=== PATIENT | female | born 1995 | race American Indian/Alaskan Native ===

== ENCOUNTER 2018-08-13 11:39 | Emergency (ER) | payer SELFPAY ==
[2018-08-13 11:59] VITALS: BP 116/68
--- NOTE | 2018-08-13 14:37 | Emergency Department Report ---
Chief Complaint: Skin Rash Stated Complaint: UNDER ARM RASH/VAGINAL ITCHING Time Seen by Provider: 08/13/18 14:16 - HPI History of Present Illness: 22-year-old female presents to the emergency department with 2 complaints. First, the patient has been dealing with a rash under her armpits that is much worse to the left axilla than the right. She was seen for this at a different emergency department and placed on nystatin cream. She's been using it compliantly without any relief. It is itchy and has caused some skin color change. Second complaint is vaginal itching and burning. She had some recent white discharge but that has improved. She denies any abdominal or pelvic pains. - ROS Review of Systems: Positive for rash, vaginal itching and irritation Negative for vaginal bleeding, dysuria, fever - Exam Vital Signs: Vital Signs 08/13/18 11:56 Temperature 98.5 F Pulse Rate 69 Respiratory 16 Rate Blood Pressure 116/68 O2 Sat by Pulse 99 Oximetry Physical Exam: Patient has some darkening of the skin to the bilateral axilla, much worse on the left. There are some excoriations. No bleeding, weeping or drainage. MSE screening note: Focused history and physical exam performed. Due to findings the following was ordered: Patient may need pelvic examination. ED Disposition for MSE Condition: Stable Referrals: PRIMARY CARE, [Primary Care Provider] - 3-5 Days
--- NOTE | 2018-08-13 15:38 | Event Note ---
Date: 08/13/18 (NOT IN ROOM WHEN WENT TO EXAMINE PT. SHE NEVER LEFT A SPECIMENT. ) RN SAW HER LEAVE AND SHE STATED SHE WAS HUNGRY AND HAD TO LEAVE.
== END 2018-08-13 15:30 | disposition left against medical advice (07) ==
LOC: ED 11:39
DX: R21 Rash and other nonspecific skin eruption (principal)
CPT/HCPCS: 99281

== ENCOUNTER 2018-08-18 16:51 | Emergency (ER) | payer SELFPAY ==
[2018-08-18 17:22] VITALS: BP 115/57
--- NOTE | 2018-08-18 18:13 | Emergency Department Report ---
Chief Complaint: Urogenital-Female Stated Complaint: STD CHECK/VAGINAL ITCHING - HPI History of Present Illness: Ms. Azar comes to ER for STD screening, she has mild vaginal itching and irritation - Exam Vital Signs: Vital Signs 08/18/18 17:19 Temperature 98.2 F Pulse Rate 75 Respiratory 16 Rate Blood Pressure 115/57 O2 Sat by Pulse 99 Oximetry MSE screening note: Focused history and physical exam performed. Due to findings the following was ordered: ED Medical Decision Making - Medical Decision Making Referred to Health Department for STD evaluation and treatment ED Disposition for MSE Clinical Impression: Vaginitis Disposition: DC- TO HOME OR SELFCARE Is pt being admited?: No Does the pt Need Aspirin: No Condition: Stable Instructions: Vaginitis (ED) Referrals: [facility] Depart [Outside] - 3-5 Days
== END 2018-08-18 18:04 | disposition home or self-care (01) ==
LOC: ED 16:51
DX: N76.0 Acute vaginitis (principal)
CPT/HCPCS: 99282

== ENCOUNTER 2019-06-13 18:58 | Emergency (ER) | payer SELFPAY ==
[2019-06-13 20:58] LABS: Basophils # (Auto) 0.1 K/mm3 (0.0-0.1); Basophils % (Auto) 0.7 % (0.0-1.8); Eosinophils # (Auto) 0.1 K/mm3 (0.0-0.4); Eosinophils % (Auto) 1.4 % (0.0-4.3); Hematocrit 36.1 % (30.3-42.9); Hemoglobin 12.1 gm/dl (10.1-14.3); Lymphocytes # (Auto) 2.6 K/mm3 (1.2-5.4); Lymphocytes % (Auto) 26.5 % (13.4-35.0); Mean Corpuscular HGB Conc 34 % (30-34); Mean Corpuscular Volume 90 fl (79-97); Monocytes # (Auto) 0.8 K/mm3 (0.0-0.8); Monocytes % (Auto) 7.9 % (0.0-7.3); Platelet Count 339 K/mm3 (140-440); Red Cell Distribution Width 13.7 % (13.2-15.2)
[2019-06-13 21:30] LABS: HCG Qualitative,Urine Negative (Negative)
[2019-06-13 21:31] LABS: Bilirubin,Urine NEG (Negative); Blood,Urine NEG (Negative); Color,Urine Amber (Yellow); Mucus,Urine 3+ /HPF; Protein,Urine <15 mg/dL mg/dL (Negative)
--- NOTE | 2019-06-13 21:52 | Emergency Department Report ---
ED Female HPI - General Chief complaint: Urogenital-Female Stated complaint: VAGINAL DISCHARGE Time Seen by Provider: 06/13/19 20:38 Source: patient Mode of arrival: Ambulatory Limitations: No Limitations - History of Present Illness Initial comments: Patient is a 23-year-old -[place] female who presents for vaginal discharge 3 weeks discharge described as white yellow malodorous fishy is no fevers no chills no nausea vomiting no back pain or abdominal pain LMP 4 weeks ago Complaint: vaginal discharge Onset/Timin -: week(s) Radiation: non-radiating Severity: moderate Severity scale (0 -10): 4 Quality: other (itching ) Consistency: constant Improves with: none Worsens with: none Are you Now?: No Last Menstrual Period: 05/22/19 EDC: 02/26/20 Associated Symptoms: vaginal discharge. denies: vaginal bleeding, nausea/vomiting, fever/chills, dysuria - Related Data Sexually active: Yes : 2 Para: 2 A: 0 Previous Rx's Medication Instructions Recorded Last Taken Type Fluconazole [Diflucan TAB] 150 mg PO ONCE #1 tablet 06/13/19 Unknown Rx metroNIDAZOLE [Flagyl] 500 mg PO BID 10 Days #20 tab 06/13/19 Unknown Rx Allergies Allergy/AdvReac Type Severity Reaction Status Date / Time No Known Allergies Allergy Unverified 08/13/18 11:59 ED Review of Systems ROS: Stated complaint: VAGINAL DISCHARGE Other details as noted in HPI Constitutional: denies: chills, fever Eyes: denies: eye pain, eye discharge, vision change ENT: denies: ear pain, throat pain Respiratory: denies: cough, shortness of breath, wheezing Cardiovascular: denies: chest pain, palpitations Endocrine: no symptoms reported Gastrointestinal: denies: abdominal pain, nausea, vomiting, diarrhea Genitourinary: discharge. denies: urgency, dysuria, frequency, hematuria, dyspareunia Musculoskeletal: denies: back pain, joint swelling, arthralgia Skin: denies: rash, lesions Neurological: denies: headache, weakness, paresthesias Psychiatric: denies: anxiety, depression Hematological/Lymphatic: denies: easy bleeding, easy bruising ED Past Medical Hx - Past Medical History Previous Medical History?: No - Surgical History Past Surgical History?: No - Social History Smoking Status: Never Smoker Substance Use Type: Alcohol - Medications Home Medications: Home Medications Medication Instructions Recorded Confirmed Last Taken Type Fluconazole [Diflucan TAB] 150 mg PO ONCE #1 tablet 06/13/19 Unknown Rx metroNIDAZOLE [Flagyl] 500 mg PO BID 10 Days #20 tab 06/13/19 Unknown Rx ED Physical Exam - General Limitations: No Limitations General appearance: alert, in no apparent distress - Head Head exam: Present: atraumatic, normocephalic, normal inspection - Eye Eye exam: Present: normal appearance, PERRL, EOMI Pupils: Present: normal accommodation - ENT ENT exam: Present: mucous membranes moist - Neck Neck exam: Present: normal inspection, full ROM. Absent: lymphadenopathy - Respiratory Respiratory exam: Present: normal lung sounds bilaterally. Absent: respiratory distress, wheezes, stridor, chest wall tenderness - Cardiovascular Cardiovascular Exam: Present: regular rate, normal rhythm, normal heart sounds. Absent: systolic murmur, diastolic murmur, rubs, gallop - GI/Abdominal GI/Abdominal exam: Present: soft, normal bowel sounds. Absent: distended, tenderness, guarding, rebound, rigid, bruit, hernia - Rectal Rectal exam: Present: deferred - External exam: Present: normal external exam. Absent: erythema, swelling, lesions, lacerations, ecchymosis, bleeding Speculum exam: Present: erythema, vaginal discharge (white thick malodorous ). Absent: cervical discharge, vaginal bleeding, foreign body, tissue, laceration Bi-manual exam: Absent: cervical motion tendernes - Extremities Exam Extremities exam: Present: normal inspection, full ROM, normal capillary refill. Absent: tenderness, pedal edema, joint swelling, calf tenderness - Back Exam Back exam: Present: normal inspection, full ROM, tenderness. Absent: CVA tenderness (R), CVA tenderness (L), muscle spasm, paraspinal tenderness, verteb ral tenderness, rash noted - Neurological Exam Neurological exam: Present: alert, oriented X3, normal gait, reflexes normal. Absent: motor sensory deficit - Psychiatric Psychiatric exam: Present: normal affect, normal mood - Skin Skin exam: Present: warm, dry, intact, normal color. Absent: rash ED Course Vital Signs 06/13/19 19:49 Temperature 98.4 F Pulse Rate 70 Respiratory 18 Rate Blood Pressure 117/59 ED Medical Decision Making - Lab Data Result diagrams: 06/13/19 20:42 Lab Results 06/13/19 06/13/19 Range/Units 20:42 21:05 WBC 10.0 (4.5-11.0) K/mm3 RBC 4.00 (3.65-5.03) M/mm3 Hgb 12.1 (10.1-14.3) gm/dl Hct 36.1 (30.3-42.9) % MCV 90 (79-97) fl MCH 30 (28-32) pg MCHC 34 (30-34) % RDW 13.7 (13.2-15.2) % Plt Count 339 (140-440) K/mm3 Lymph % (Auto) 26.5 (13.4-35.0) % Jefferson % (Auto) 7.9 H (0.0-7.3) % Eos % (Auto) 1.4 (0.0-4.3) % Baso % (Auto) 0.7 (0.0-1.8) % Lymph # 2.6 (1.2-5.4) K/mm3 Jefferson # 0.8 (0.0-0.8) K/mm3 Eos # 0.1 (0.0-0.4) K/mm3 Baso # 0.1 (0.0-0.1) K/mm3 Seg Neutrophils % 63.5 (40.0-70.0) % Seg Neutrophils # 6.3 (1.8-7.7) K/mm3 Urine Color Deepa (Yellow) Urine Turbidity Clear (Clear) Urine pH 6.0 (5.0-7.0) Ur Specific Linn 1.028 (1.003-1.030) Urine Protein <15 mg/dl (Negative) mg/dL Urine Glucose (UA) Neg (Negative) mg/dL Urine Ketones Neg (Negative) mg/dL Urine Blood Neg (Negative) Urine Nitrite Neg (Negative) Ur Reducing Substances Not Reportable Urine Bilirubin Neg (Negative) Urine Ictotest Not Reportable Urine Urobilinogen 2.0 (<2.0) mg/dL Ur Leukocyte Esterase Tr (Negative) Urine WBC (Auto) 2.0 (0.0-6.0) /HPF Urine RBC (Auto) 3.0 (0.0-6.0) /HPF U Epithel Cells (Auto) 9.0 (0-13.0) /HPF Urine Mucus 3+ /HPF Urine HCG, Qual Negative (Negative) wet prep pos for clue cells - Medical Decision Making Wet prep pos for clues, plan flagyl, diflucan, follow up with pcp in 2-3 days return to ed if symptoms worsen. Critical care attestation.: If time is entered above; I have spent that time in minutes in the direct care of this critically ill patient, excluding procedure time. ED Disposition Clinical Impression: BV (bacterial vaginosis) Disposition: TO HOME OR SELFCARE Is pt being admited?: No Does the pt Need Aspirin: No Condition: Stable Instructions: Bacterial Vaginosis (ED) Prescriptions: Fluconazole [Diflucan TAB] 150 mg PO ONCE #1 tablet metroNIDAZOLE [Flagyl] 500 mg PO BID 10 Days #20 tab Referrals: RYAN CARTAGENA MD [Primary Care Provider] - 3-5 Days Forms: Work/School Release Form(ED) Time of Disposition: 22:20
[2019-06-13 22:39] VITALS: BP 97/60
== END 2019-06-13 22:39 | disposition home or self-care (01) ==
LOC: ED 18:58
DX: N76.0 Acute vaginitis (principal); B96.89 Other specified bacterial agents as the cause of diseases classified elsewhere
CPT/HCPCS: 36415; 81001; 81025; 85025; 87210; 87591

== ENCOUNTER 2019-09-30 12:03 | Emergency (ER) | payer SELFPAY ==
--- NOTE | 2019-09-30 12:25 | Emergency Department Report ---
ED General Adult HPI - General Chief complaint: Urogenital-Female Stated complaint: VAGINAL DISCHARGE/IRRITATION Time Seen by Provider: 09/30/19 12:19 Source: patient Mode of arrival: Ambulatory Limitations: No Limitations - History of Present Illness Initial comments: 23 yo F complains of vaginal discharge with a mild odor x 2 weeks. She states she has hx of recurrent BV and that this seems like her normal BV. She denies any unprotected sex or hx of STI. She also denies vaginal bleeding, dysuria, hematuria, dyspareunia, vaginal lesions, itching, abdominal pain, or fever -: week(s) Worsens with: none Associated Symptoms: denies other symptoms Treatments Prior to Arrival: none - Related Data Previous Rx's Medication Instructions Recorded Last Taken Type Fluconazole [Diflucan TAB] 150 mg PO ONCE #1 tablet 06/13/19 Unknown Rx metroNIDAZOLE [Flagyl] 500 mg PO BID 10 Days #20 tab 06/13/19 Unknown Rx Fluconazole [Diflucan TAB] 150 mg PO ONCE 1 Days #1 tablet 09/30/19 Unknown Rx metroNIDAZOLE [Flagyl] 500 mg PO Q12HR 7 Days #14 tab 09/30/19 Unknown Rx Allergies Allergy/AdvReac Type Severity Reaction Status Date / Time No Known Allergies Allergy Unverified 09/30/19 12:15 ED Review of Systems ROS: Stated complaint: VAGINAL DISCHARGE/IRRITATION Other details as noted in HPI Comment: All other systems reviewed and negative Gastrointestinal: as per HPI Genitourinary: as per HPI ED Past Medical Hx - Social History Smoking Status: Never Smoker Substance Use Type: Alcohol - Medications Home Medications: Home Medications Medication Instructions Recorded Confirmed Last Taken Type Fluconazole [Diflucan TAB] 150 mg PO ONCE #1 tablet 06/13/19 Unknown Rx metroNIDAZOLE [Flagyl] 500 mg PO BID 10 Days #20 tab 06/13/19 Unknown Rx Fluconazole [Diflucan TAB] 150 mg PO ONCE 1 Days #1 tablet 09/30/19 Unknown Rx metroNIDAZOLE [Flagyl] 500 mg PO Q12HR 7 Days #14 tab 09/30/19 Unknown Rx ED Physical Exam - General Limitations: No Limitations ED Course Vital Signs 09/30/19 12:15 Temperature 98.3 F Pulse Rate 82 Respiratory 18 Rate Blood Pressure 98/60 O2 Sat by Pulse 98 Oximetry ED Medical Decision Making - Medical Decision Making Pt here with complaints of vaginal discharge. States hx of recurrent BV. Pt states she is not concerned for STI. Will treat BV with flagyl. Discussed need for f/u with PCP or OBGYN. Discussed strict return precautions in detail with pt who states understanding Critical care attestation.: If time is entered above; I have spent that time in minutes in the direct care of this critically ill patient, excluding procedure time. ED Disposition Clinical Impression: Bacterial vaginosis Disposition: TO HOME OR SELFCARE Is pt being admited?: No Condition: Stable Instructions: Bacterial Vaginosis (ED) Prescriptions: Fluconazole [Diflucan TAB] 150 mg PO ONCE 1 Days #1 tablet metroNIDAZOLE [Flagyl] 500 mg PO Q12HR 7 Days #14 tab Referrals: PRIMARY CARE, [Primary Care Provider] - 3-5 Days Forms: STI Treatment and Prevention
[2019-09-30 12:26] VITALS: BP 98/60
[2019-09-30] MEDS ORDERED: LORazepam 2 MG/ML VIAL ONE (15:35)
== END 2019-09-30 12:45 | disposition home or self-care (01) ==
LOC: ED 12:03
DX: N76.0 Acute vaginitis (principal)
CPT/HCPCS: J2060

== ENCOUNTER 2019-12-28 11:01 | Emergency (ER) | payer BC ==
[2019-12-28 11:06] VITALS: BP 113/63
--- NOTE | 2019-12-28 11:10 | Emergency Department Report ---
ED Extremity Problem HPI - General Chief complaint: Extremity Injury, Lower Stated complaint: LEFT FOOT PAIN Time Seen by Provider: 12/28/19 11:07 Source: patient Mode of arrival: Ambulatory Limitations: No Limitations - History of Present Illness Initial comments: tonja's daughter fell on her while walking and she injried the L 5th digit Complaint: extremity pain (left 5th toe), extremity swelling -: hour(s) (2) Radiation: none Severity scale (0 -10): 7 Quality: aching Consistency: constant Improves with: nothing Worsens with: weight bearing, walking, palpation - Related Data Previous Rx's Medication Instructions Recorded Last Taken Type Fluconazole [Diflucan TAB] 150 mg PO ONCE #1 tablet 06/13/19 Unknown Rx metroNIDAZOLE [Flagyl] 500 mg PO BID 10 Days #20 tab 06/13/19 Unknown Rx Fluconazole [Diflucan TAB] 150 mg PO ONCE 1 Days #1 tablet 09/30/19 Unknown Rx metroNIDAZOLE [Flagyl] 500 mg PO Q12HR 7 Days #14 tab 09/30/19 Unknown Rx Ibuprofen [Motrin 800 MG tab] 800 mg PO Q8HR PRN #10 tablet 12/28/19 Unknown Rx Allergies Allergy/AdvReac Type Severity Reaction Status Date / Time No Known Allergies Allergy Unverified 09/30/19 12:15 ED Review of Systems ROS: Stated complaint: LEFT FOOT PAIN Other details as noted in HPI Comment: All other systems reviewed and negative ED Past Medical Hx - Past Medical History Previous Medical History?: No - Surgical History Past Surgical History?: No - Social History Smoking Status: Never Smoker Substance Use Type: None - Medications Home Medications: Home Medications Medication Instructions Recorded Confirmed Last Taken Type Fluconazole [Diflucan TAB] 150 mg PO ONCE #1 tablet 06/13/19 Unknown Rx metroNIDAZOLE [Flagyl] 500 mg PO BID 10 Days #20 tab 06/13/19 Unknown Rx Fluconazole [Diflucan TAB] 150 mg PO ONCE 1 Days #1 tablet 09/30/19 Unknown Rx metroNIDAZOLE [Flagyl] 500 mg PO Q12HR 7 Days #14 tab 09/30/19 Unknown Rx Ibuprofen [Motrin 800 MG tab] 800 mg PO Q8HR PRN #10 tablet 12/28/19 Unknown Rx ED Physical Exam - General Limitations: No Limitations General appearance: alert, in no apparent distress - Head Head exam: Present: atraumatic, normocephalic - Expanded Lower Extremity Exam Left Foot/Toe exam: Present: tenderness, swelling, erythema. Absent: full ROM Neuro vascular tendon exam: Present: no vascular compromise. Absent: pulse deficit, abnormal cap refill ED Course Vital Signs 12/28/19 11:04 Temperature 97.6 F Pulse Rate 94 H Respiratory 16 Rate Blood Pressure 113/63 O2 Sat by Pulse 97 Oximetry ED Medical Decision Making - Radiology Data Patient: RENAE ESQUIVEL MR#: [id number] : 1995 Acct:[id number] Age/Sex: 23 / F ADM Date: 12/28/19 Loc: ED Attending Dr: Ordering Physician: ANNALISE CABALLERO MD Date of Service: 12/28/19 Procedure(s): XR foot 3+V LT Accession Number(s): [id number] cc: ANNALISE CABALLERO MD Fluoro Time In Minutes: LEFT FOOT 3 VIEWS INDICATION: 5th toe injury. COMPARISON: None. IMPRESSION: No acute osseous or soft tissue abnormality. No abnormality of the fifth toe is detected. No significant DJD. Signer Name: Armaan Juarez Jr, MD Signed: 12/28/2019 11:45 AM Workstation Name: [id number] Transcribed By: TTR Dictated By: ARMAAN JUAREZ JR, MD Electronically Authenticated By: ARMAAN JUAREZ JR, MD Signed Date/Time: 12/28/19 1145 - Medical Decision Making pt placed in post op shoe dc home Critical care attestation.: If time is entered above; I have spent that time in minutes in the direct care of this critically ill patient, excluding procedure time. ED Disposition Clinical Impression: Toe contusion Qualifiers: Encounter type: initial encounter Toe: lesser toe Damage to nail status: without damage Laterality: left Qualified Code(s): S90.122A - Contusion of left lesser toe(s) without damage to nail, initial encounter Disposition: DC-01 TO HOME OR SELFCARE Is pt being admited?: No Does the pt Need Aspirin: No Condition: Stable Instructions: Foot Contusion (ED) Referrals: ULISES HUNTER DPM [Staff Physician] - 3-5 Days Time of Disposition: 11:55
--- NOTE | 2019-12-28 11:49 | XRay Report ---
LEFT FOOT 3 VIEWS INDICATION: 5th toe injury. COMPARISON: None. IMPRESSION: No acute osseous or soft tissue abnormality. No abnormality of the fifth toe is detected . No significant DJD. Signer Name: Armaan Juarez Jr, MD Signed: 12/28/2019 11:45 AM Workstation Name: [id number]
== END 2019-12-28 12:04 | disposition home or self-care (01) ==
LOC: ED 11:01
DX: S90.122A Contusion of left lesser toe(s) without damage to nail, initial encounter (principal); Z79.899 Other long term (current) drug therapy; X58.XXXA Exposure to other specified factors, initial encounter; Y93.89 Activity, other specified; Y92.89 Other specified places as the place of occurrence of the external cause; Y99.8 Other external cause status